=== PATIENT | female | born 1960 | race Caucasian/White ===

== ENCOUNTER 2022-03-04 07:45 | Outpatient (CLI) | payer BC | END 2022-03-04 07:46 | disposition home or self-care (01) | LOC: CSHMAMMO 07:45 | PROVIDERS: ATTEND Family Medicine | DX: Z12.31 Encounter for screening mammogram for malignant neoplasm of breast (principal); Z80.3 Family history of malignant neoplasm of breast; Z98.82 Breast implant status | CPT/HCPCS: 77063; 77067 ==

== ENCOUNTER 2024-07-22 13:21 | Outpatient (CLI) | payer BC | END 2024-07-22 13:22 | disposition home or self-care (01) | LOC: CSHMAMMO 13:21 | PROVIDERS: ATTEND Family Medicine | DX: Z12.31 Encounter for screening mammogram for malignant neoplasm of breast (principal); Z80.3 Family history of malignant neoplasm of breast; Z98.890 Other specified postprocedural states | CPT/HCPCS: 77063; 77067 ==